=== PATIENT | male | born 1970 | race African-American/Black ===

== ENCOUNTER → 2016-11-08 | Outpatient (CLI) | payer MEDICARE ==
[~2016-11-08] MED LIST: APRESOLINE50 MG PO; ASPIRIN (CHILDR81 MG PO; B COMPLEX1 EACH PO; COLACE100 MG PO; DILAUDID2 MG PO; DRISDOL 5050000 UNIT PO; ELIQUIS2.5 MG PO; LOPRESSOR100 M1 PO; MIRALAX PO527 GM/BOT; MIRALAX17 GM PO; MYFORTIC360 MG PO; PROGRAF1 MG PO; SENSIPAR30 MG PO; TUMS REGULAR ST1 TAB PO; ULTRAM50 MG PO; VALIUM5 MG PO; ZYLOPRIM100 MG PO
== END | disposition disaster alternative care site (69) ==
LOC: GRAD 12:16
PROC: 02PA33Z Removal of Infusion Device from Heart, Percutaneous Approach (ICD-10-PCS; principal; 2016-11-08)
DX: Z45.2 Encounter for adjustment and management of vascular access device (principal)